=== PATIENT | female | born 1995 | race Caucasian/White ===

== ENCOUNTER → 2018-01-30 | Outpatient (CLI) | payer MEDICARE, OTHER | END | disposition home or self-care (01) | LOC: RADPV 14:09 | PROVIDERS: ATTEND Nurse Practitioner | DX: Z01.818 Encounter for other preprocedural examination (principal); J45.20 Mild intermittent asthma, uncomplicated | CPT/HCPCS: 71046 ==

== ENCOUNTER 2021-12-11 17:34 | Emergency (ER) | payer MEDICARE, OTHER ==
[~2021-12-11] VITALS: Ht 157.5 cm; Wt 71.0 kg
[~2021-12-11 17:34] MED LIST: HYDR-4723 PO
[2021-12-11 18:48] VITALS: BP 116/74
[2021-12-11 19:53] LABS: BASOPHILS % (AUTO) 0.1 % (0.0-2.0); EOSINOPHILS % (AUTO) 0 % (1.0-6.0); HEMATOCRIT 42.8 % (36-46); HEMOGLOBIN 14.9 g/dL (12.0-16.0); LYMPHOCYTES # (AUTO) 1.2 K/uL (1.0-4.8); LYMPHOCYTES % (AUTO) 6.8 % (22.0-44.0); MEAN CORPUSCULAR HEMOGLOBIN 29.3 pg (26.0-34.0); MEAN CORPUSCULAR HGB CONC 34.7 G/dL (31.0-37.0); MEAN CORPUSCULAR VOLUME 84 fL (80-100); MONOCYTES # (AUTO) 0.8 K/uL (0.1-1.0); MONOCYTES % (AUTO) 4.4 % (2.0-9.0); NEUTROPHILS # (AUTO) 15.3 K/uL (1.8-7.7); PLATELET COUNT (AUTO) 440 K/uL (150-450); RED BLOOD CELL COUNT(AUTO) 5.07 MIL/uL (4.00-5.20); RED CELL DISTRIBUTION WIDTH 13.4 % (11.5-14.5)
[2021-12-11 20:01] LABS: NEUTROPHILS % (AUTO) 88.7 % (40.0-70.0)
[2021-12-11 20:05] LABS: ANION GAP 7 mmol/L (8-16); CALCIUM, TOTAL 9.9 mg/dL (8.8-10.5); CARBON DIOXIDE 31 mmol/L (22-29); CHLORIDE 99 mmol/L (98-107); CREATININE 0.76 mg/dL (0.60-1.30); GLOMERULAR FILTR. RATE CALC > 60 mL/min (>60); GLUCOSE,RANDOM 170 mg/dL (70-110); POTASSIUM 4.1 mmol/L (3.5-5.1); SODIUM SERUM 137 mmol/L (136-145); UREA NITROGEN, BLOOD 12 mg/dL (7-18)
[2021-12-11 20:19] LABS: ALANINE AMINOTRANSFERASE 500 U/L (12-78); ALBUMIN 4.4 g/dL (3.4-5.0); ALKALINE PHOSPHATASE 87 U/L (46-116); ASPARTATE AMINOTRANSFERASE 541 U/L (15-37); BILIRUBIN,TOTAL 2.4 mg/dL (0.1-1.0); HCG,QUANTITATIVE < 1 mIU/mL (0-6); TOTAL PROTEIN, SERUM 9.2 g/dL (6.4-8.2)
[2021-12-11 20:50] LABS: LIPASE 9093 U/L (73-393)
== END 2021-12-12 01:07 | disposition left against medical advice (07) ==
LOC: EMS 17:35
DX: R10.9 Unspecified abdominal pain (principal); Z53.21 Procedure and treatment not carried out due to patient leaving prior to being seen by health care provider
CPT/HCPCS: 80053; 83690; 84702; 85025